=== PATIENT | male | born 1990 | race Caucasian/White ===

== ENCOUNTER 2021-01-20 07:25 | Emergency (ER) | payer MEDICAID ==
[~2021-01-20] VITALS: Ht 167.6 cm; Wt 64.0 kg
[2021-01-20] MEDS ORDERED: TOPUD PO (10:32)
[2021-01-20 11:05] VITALS: BP 110/58
== END 2021-01-20 11:17 | disposition home or self-care (01) ==
LOC: ER 07:25
DX: S02.2XXA Fracture of nasal bones, initial encounter for closed fracture (principal); S06.899A Other specified intracranial injury with loss of consciousness of unspecified duration, initial encounter; Y00.XXXA Assault by blunt object, initial encounter; Y93.89 Activity, other specified; Y92.512 Supermarket, store or market as the place of occurrence of the external cause
CPT/HCPCS: 70486; 99285